=== PATIENT | male | born 1960 | race Caucasian/White ===

== ENCOUNTER 2019-07-08 17:16 | Observation (INO) ==
[2019-07-08] MEDS ORDERED: ASPIRIN PO ONE (17:27)
[2019-07-08 17:40] LABS: BASO# 0.04 X1000 (0.0-0.2); BASO% 0.2 % (0.0-0.8); EOS# 0.09 X1000 (0.0-0.7); EOS% 0.5 % (0.0-10.0); HEMATOCRIT 50.2 % (42.0-52.0); HEMOGLOBIN 16.8 g/dL (14.0-18.0); IMM GRAN# 0.05 X1000 (0.0-0.04); IMM GRAN% 0.3 % (0.0-0.5); LYMPH# 1.33 X1000 (1.2-3.4); LYMPH% 7.3 % (20.5-51.1); MCH 34.2 PG (27-31); MCHC 33.5 g/dL (33-37); MCV 102.2 FL (81-99); MONO# 1.94 X1000 (0.11-0.59); MONO% 10.7 % (1.7-9.3); MPV 9.9 FL (7.4-10.4); NEUT# 14.67 X1000 (1.4-6.5); PLT 386 X1000 (130-400); RBC 4.91 XMIL (4.7-6.1); RDW 13.8 % (11.5-14.5); WBC 18.12 X1000 (4.8-10.8)
[2019-07-08 17:45] LABS: INR 1.02; PROTIME 13.6 Seconds (11.0-16.0)
[2019-07-08 17:46] LABS: PTT 30.9 Seconds (22.3-41.8)
[2019-07-08 17:58] LABS: AGAP 15; ALB/GLOB RATIO 1.4; ALBUMIN 4.4 g/dL (3.5-5.0); ALKALINE PHOSPHATASE 69 U/L (32-122); BUN 10 mg/dL (8-22); CALCIUM 9.5 mg/dL (8.8-10.2); CHLORIDE 99 mmol/L (98-107); CK PROFILE 38 U/L (24-204); COSMO 279; CREATININE 0.9 mg/dL (0.7-1.2); ESTIMATED GFR > 60; GLUCOSE 101 mg/dL (70-104); GOT 11 U/L (10-34); GPT 8 U/L (10-44); POTASSIUM 4.8 mmol/L (3.5-5.1); SODIUM 140 mmol/L (136-145); TCO2 26 mmol/L (25-35); TOTAL PROTEIN 7.5 g/dL (6.3-8.3)
--- NOTE | 2019-07-08 18:07 | EKG Report ---
Test Performed on : 07/08/2019 5:28:11 PM Test Reason : sob Blood Pressure : / mmHG Vent. Rate : 128 BPM Atrial Rate : 128 BPM P-R Int : 138 ms QRS Dur : 074 ms QT Int : 302 ms P-R-T Axes : 089 079 072 degrees QTc Int : 440 ms Sinus tachycardia. with premature atrial complexes. Pulmonary disease pattern Septal infarct , age undetermined Abnormal ECG No previous ECGs available Unconfirmed Result
[2019-07-08] MEDS ORDERED: SOLU-MEDROL IV ONE (18:36)
[2019-07-08] MEDS ORDERED: LASIX IV ONE (18:36)
[2019-07-08] MEDS ORDERED: DUONEB (A & A) INH ONE (18:36)
[2019-07-08] MEDS ORDERED: ROCEPHIN 1 GM in NS 50 ML IV ONE (18:37)
--- NOTE | 2019-07-08 18:47 | Diag Imaging Result Doc PS360 ---
CHEST-2 VIEWS - 07/08/2019 INDICATION: sob COMPARISON: None FINDINGS: There is severe COPD. There are ill-defined infiltrates in both lower lobes. Heart size is normal. No pneumothorax or pleural effusion. IMPRESSION: Severe COPD. Severe bilateral lower lobe pneumonia. Electronically signed by Bean Taylor 07/08/2019 6:45 PM
--- NOTE | 2019-07-08 19:11 | PROVIDER DOCUMENTATION ---
HPI-General Adult - General Chief Complaint: SEPSIS ALERT - P Stated Complaint: DR STARKS REFERRED Time Seen by Provider: 07/08/19 17:34 Source: patient Allergies/Adverse Reactions: Patient Allergies Allergy/AdvReac Type Severity Reaction Status Date / Time No Known Allergies Allergy Verified 07/08/19 18:57 Home Medications: Home Medication List Medication Instructions Recorded Confirmed Last Taken Type Albuterol Sulfate [Proair 90 mcg INHALATION Q4H PRN 07/08/19 07/08/19 Unknown History Respiclick] Budesonide/Formoterol Inhaler 1 puff INHALATION DAILY 07/08/19 07/08/19 Unknown History [Symbicort 160/4.5 Microgm Inhaler] Fluticasone/Umeclidin/Vilanter 1 inh PO DAILY 07/08/19 07/08/19 Unknown History [Trelegy Ellipta 100-62.5-25] Roflumilast [Daliresp] 1 tab PO DAILY 07/08/19 07/08/19 Unknown History Tiotropium Br/Olodaterol HCl 2.5 mcg INHALATION DAILY 07/08/19 07/08/19 Unknown History [Stiolto Respimat Inhal [place]] - History of Present Illness -Gen Adult Nature of Presenting Problems: Patient with a h/o COPD, tobacco abuse reports sob which started yesterday but getting worse. he was at the PCP,s office today and desaturated to the 80,s. Denies chest pain, calf swelling. has been using his home inhalers without symptom resolution. he states he had rib fractures few weeks ago and has not been taking much of pain med as he was no longer hurting but thinks the fracture may have precipitated his symptoms Location of Pain/Injury: reports: none, other (sob) Pain Radiation: reports: no radiation Quality of Pain: reports: none Onset/Duration: reports: other (yesterday) Context/Activities at Onset: reports: none Modifying Factors: improves with: nothing Associated Symptoms: reports: shortness of breath Review of Systems - Adult - REVIEW OF SYSTEMS - ADULT Constitutional: reports: no symptoms reported Eyes: reports: no symptoms reported Ears, Nose, Mouth & Throat: reports: no symptoms reported Cardiovascular: reports: no symptoms reported Respiratory: reports: see HPI Gastrointestinal: reports: no symptoms reported Genitourinary: reports: no symptoms reported Musculoskeletal: reports: no symptoms reported Integumentary: reports: no symptoms reported Neurological: reports: no symptoms reported Psychiatric: reports: no symptoms reported Endocrine: reports: no symptoms reported Hematologic/Lymphatic: reports: no symptoms reported Allergic/Immunologic: reports: no symptoms reported Past History - Adult - PAST MEDICAL HISTORY-ADULT Review of Records: reports: Nursing Assessment Review, Medications Reviewed, Social history reviewed & non-contributory. Cardiovascular: reports: HTN Respiratory: reports: COPD Gastrointestinal: reports: GERD, other (constipation) Genitourinary: reports: erectile dysfunction Neurological: reports: denies history Psychiatric: reports: denies history - FAMILY HISTORY Family History: reviewed, not pertinent - SOCIAL HISTORY Smoking: cigarettes Substance Use: none/never Alcohol Use Frequency: occasionally Physical Exam-General - PHYSICAL EXAM-ADULT Initial Vital Signs Reviewed: Yes - CONSTITUTIONAL General Appearance: alert (and thin), mild distress - EYES Eyes: PERRL/EOMI - HEAD, EARS, NOSE, MOUTH & THROAT HENMT: normocephalic/atraumatic - NECK Neck: non-tender, full range of motion, supple - RESPIRATORY Respiratory: chest non-tender, other (decreased air entry) - CARDIOVASCULAR Cardiovascular: regular rate, rhythm - GASTROINTESTINAL (ABDOMEN) Abdominal Exam: non tender, soft - MUSCULOSKELETAL Back Exam: normal inspection, no CVA tenderness Extremity: normal range of motion - SKIN Integumentary: normal color - NEUROLOGIC Neurologic: grossly normal - PSYCHIATRIC Psych/Mental Status: oriented x 3 Progress - PLAN OF CARE/RESULTS Progress/Plan/Lab Results: Vital Signs - 8 hr 07/08/19 17:20 Temperature 98.3 F Pulse Rate 92 H Respiratory Rate 20 Blood Pressure 126/73 O2 Sat by Pulse Oximetry 94 L Laboratory Results - last 24 hr 07/08/19 07/08/19 07/08/19 17:29 17:29 17:29 WBC 18.12 H RBC 4.91 Hgb 16.8 Hct 50.2 MCV 102.2 H MCH 34.2 H MCHC 33.5 RDW Std Deviation 13.8 Plt Count 386 MPV 9.9 Immature Gran % (Auto) 0.3 Neut % (Auto) 81.0 H Lymph % (Auto) 7.3 L [place] % (Auto) 10.7 H Eos % (Auto) 0.5 Baso % (Auto) 0.2 Immature Gran # (Auto) 0.05 H Neut # (Auto) 14.67 H Lymph # (Auto) 1.33 Pitt # (Auto) 1.94 H Eos # (Auto) 0.09 Baso # (Auto) 0.04 PT INR PTT (Actin FS) Sodium 140 Potassium 4.8 Chloride 99 Carbon Dioxide 26 Anion Gap 15 BUN 10 Creatinine 0.9 Estimated GFR/1.73 m2 > 60 BUN/Creatinine Ratio 11 Glucose 101 Calculated Osmolality 279 Calcium 9.5 Total Bilirubin 0.70 AST 11 ALT 8 L Alkaline Phosphatase 69 Creatine Kinase 38 Troponin T Qaz-H-Oyawrxlazpu Pept 615 H Total Protein 7.5 Albumin 4.4 Globulin 3.1 Albumin/Globulin Ratio 1.4 07/08/19 07/08/19 17:29 17:29 WBC RBC Hgb Hct MCV MCH MCHC RDW Std Deviation Plt Count MPV Immature Gran % (Auto) Neut % (Auto) Lymph % (Auto) Pitt % (Auto) Eos % (Auto) Baso % (Auto) Immature Gran # (Auto) Neut # (Auto) Lymph # (Auto) Pitt # (Auto) Eos # (Auto) Baso # (Auto) PT 13.6 INR 1.02 PTT (Actin FS) 30.9 Sodium Potassium Chloride Carbon Dioxide Anion Gap BUN Creatinine Estimated GFR/1.73 m2 BUN/Creatinine Ratio Glucose Calculated Osmolality Calcium Total Bilirubin AST ALT Alkaline Phosphatase Creatine Kinase Troponin T < 0.010 [id number]-Hqpokgcegzj Pept Total Protein Albumin Globulin Albumin/Globulin Ratio Orders Category Date Time Status Cardiac Monitoring DIRECTED Care 07/08/19 17:27 Active Notify Physician As Ordered Care 07/08/19 18:51 Active Oxygen Therapy- ED Nursing DIRECTED Care 07/08/19 17:27 Active Saline Loc NOW Care 07/08/19 17:27 Active CHEST-2 VIEWS [RAD] Stat Exams 07/08/19 17:27 Completed BLOOD CULTURE [BLDCUL] Stat Lab 07/08/19 18:28 Ordered CBC WITH ELECTRONIC DIFF [HEME] Stat Lab 07/08/19 17:29 Completed CK PROFILE [SP CHEM] Stat Lab 07/08/19 17:29 Completed COMPREHENSIVE METABOLIC PANEL [CHEM] Stat Lab 07/08/19 17:29 Completed LACTATE, PLASMA [CHEM] Lab 07/08/19 18:28 Received LACTATE, PLASMA [CHEM] Lab 07/08/19 22:00 Uncollected LACTATE, PLASMA [CHEM] Lab 07/09/19 01:00 Uncollected PRO B-NATRIURETIC PEPTIDE Stat Lab 07/08/19 17:29 Completed PROTIME WITH INR [COAG] Stat Lab 07/08/19 17:29 Completed PTT [COAG] Stat Lab 07/08/19 17:29 Completed TROPONIN T Stat Lab 07/08/19 17:29 Completed Albuterol 2.5MG/Ipratrop 0.5MG [Duoneb (A & A)] Med 07/08/19 18:36 Discontinued 3 ml INH NOW ONE Aspirin Med 07/08/19 17:27 Discontinued 325 mg PO NOW ONE CefTRIAXONE [Rocephin] 1 gm Med 07/08/19 18:37 Active 0.9% Sodium Chloride Inj [Ns] 50 ml IV NOW Furosemide [Lasix] Med 07/08/19 18:36 Discontinued 40 mg IV NOW ONE Methylprednisolone Sod Succ [Solu-Medrol] Med 07/08/19 18:36 Discontinued 125 mg IV NOW ONE Aerosol Treatments Routine Oth 07/08/19 18:36 Active Aerosol Treatments Stat Oth 07/08/19 18:36 Active CP/SOB/Palp >45 yrs of Age Stat Oth 07/08/19 17:27 Ordered EKG [EKG] Stat Ther 07/08/19 17:27 Draft Result Diagrams: 07/08/19 17:29 07/08/19 17:29 - REASSESSMENT Reassessment #1 Status: improving (just completed duoneb, reports improvement of symptoms. lung exam shows improved air entry. no obvious wheezing) - XRAY 1 XRAY Study: Chest ( CHEST-2 VIEWS - 07/08/2019 INDICATION: sob COMPARISON: None FINDINGS: There is severe COPD. There are ill-defined infiltrates in both lower lobes. Heart size is normal. No pneumothorax or pleural effusion. IMPRESSION: Severe COPD. Severe bilateral lower lobe pneumonia. Electronically signed by Bean Taylor 07/08/2019 6:45 PM) - CONSULTS/PCP/HOSPITALIST Notification #1 *Consult/PCP/Hospitalist*: Dr Lockett Time Discussed: 08:40 Consult Disposition: Admit Departure - Departure Date of Disposition Decision: 07/08/19 Time of Disposition Decision: 20:55 DIAGNOSIS: COPD exacerbation Pneumonia Qualifiers: Pneumonia type: due to unspecified organism Laterality: bilateral Lung location: lower lobe of lung Qualified Code(s): J18.1 - Lobar pneumonia, unspecified organism Sepsis Qualifiers: Sepsis type: sepsis due to unspecified organism Sepsis acute organ dysfunction status: unspecified Qualified Code(s): A41.9 - Sepsis, unspecified organism Disposition: ADMITTED INPATIENT 09 Certified Medical Emergency: Emergent Condition: Fair Referrals and Follow-Ups: Andrez Starks MD [Primary Care Provider] - - Critical Care Note This patient required my direct & personal management of CC.: No Attestation - Physician/ CHUNG Attestation Patient care was provided by Advanced Practice Provider:: No The physician spent face to face time with patient:: Yes Advanced Practice Provider documentation review:: Supervising physician onsite and consulted in the evaluation and care of this patient. The physician did have a face to face encounter with the patient.
[2019-07-08] MEDS ORDERED: ZITHROMAX 500 MG/NS 500 MG/250 ML IVPB IV ONE (19:49)
[2019-07-08] MEDS ORDERED: NS 1,500 ML IV ONE (19:58)
[2019-07-08] MEDS ORDERED: NICODERM PATCH TD PRN (21:27)
[2019-07-08] MEDS ORDERED: NS 1,000 ML IV SCH (21:30)
--- NOTE | 2019-07-08 22:20 | HISTORY AND PHYSICAL ---
CHIEF COMPLAINT: Shortness of breath for about two days. HISTORY OF PRESENT ILLNESS: Mr. Aneesh Thomson is a 58-year-old male who has a history of COPD, tobacco use history, hypertension, gastroesophageal reflux disease. He presents to the hospital because of shortness of breath which has been ongoing for about two days. He also describes a cough productive of yellowish, greenish sputum. The patient has an extensive cigarette smoking history for about 40 years. He denies any hemoptysis, but admits to having wheezing. The patient was seen and evaluated in the ER. X-ray of the chest showed evidence of severe COPD as well as severe bilateral lower lobe pneumonia. The patient has now been admitted to the floor for further management. PAST MEDICAL HISTORY: COPD, hypertension, gastroesophageal reflux disease, history of erectile dysfunction, history of constipation. SOCIAL HISTORY: Patient smokes cigarettes and has been smoking for about 40 years. He drinks alcohol. Denies drug use. ALLERGIES: No known medication allergies. PAST SURGICAL HISTORY: Unremarkable. FAMILY HISTORY: Positive for cancer. MEDICATIONS: Include the following: Albuterol (ProAir) 90 mcg inhalation q.4 hours p.r.n., Symbicort 160/4.5 one puff daily, Trelegy Ellipta 100/62.5/25 one inhalation daily, Daliresp 1 tablet daily, Stiolto Respimat inhalation 2.5 mcg inhalation daily. REVIEW OF SYSTEMS: Constitutional: No fever. Central nervous system: No headaches. Eyes: Blurred vision. ENT: No sinus problems or hearing loss. Cardiovascular: Denies chest pain. Gastrointestinal: He has constipation. Genitourinary: No dysuria. Musculoskeletal: He has joint pain. Dermatologic: No skin lesions. Hematologic: No bleeding problems. Endocrinologic: No thyroid disease or diabetes. Allergic/immunologic: He has some nasal discharge. Psychiatric: No anxiety or depression. PHYSICAL EXAMINATION: VITAL SIGNS: Temperature 98.3 degrees, pulse 92, respirations 20, blood pressure 126/73, oxygen saturation is 94%. HEENT: Patient is atraumatic, normocephalic. He is anicteric. Extraocular movements intact. He has whitish discoloration on his tongue. NECK: No lymphadenopathy or thyromegaly. CARDIOVASCULAR: S1, S2. RESPIRATORY SYSTEM: Evidence of good air entry bilaterally. ABDOMEN: Soft, nontender. No masses felt. EXTREMITIES: No evidence of edema. CENTRAL NERVOUS SYSTEM: No obvious focal deficits noted. LABORATORY AND DIAGNOSTIC DATA: WBC 18.12, hematocrit is 50.2, with a platelet count of 386,000, MCV is 102.2. INR is 1.02. Sodium is 140, potassium 4.8, chloride is 99, bicarbonate 26, BUN is 10, creatinine 0.9. ProBNP is 615. X-ray of chest shows evidence of severe COPD, as well as severe bilateral lower lobe pneumonia. EKG shows evidence of sinus tachycardia with premature atrial complexes. ASSESSMENT AND PLAN: 1. Chronic obstructive pulmonary disease exacerbation. Maintain patient on nebulized bronchodilators, steroids, as well as antibiotics. Maintain patient on oxygen supplementation. Patient advised on smoking cessation. 2. Community-acquired pneumonia. Obtain sputum as well as blood cultures. Maintain patient on empiric antibiotics. 3. Sepsis. Maintain patient on intravenous fluids. Continue antibiotics. Follow up on cultures. 4. Elevated proBNP level. Obtain 2D echo of the heart. 5. Macrocytosis. Check B12 level, folate level, GTT level, as well as a TSH level. 6. Leukocytosis. Probably related to infective process. Will follow up on patient's white count. 7. Hypertension. Blood pressure controlled without medications. 8. Gastroesophageal reflux disease. Maintain patient on proton pump inhibitor. 9. Deep vein thrombosis prophylaxis. Lovenox. cc: Roger Carrington MD
[2019-07-08 22:22] LABS: URINE SOURCE CLEAN CATCH
[2019-07-08 22:38] LABS: BILIRUBIN URINE NEGATIVE (NEGATIVE); BLOOD URINE NEGATIVE (NEGATIVE); COLOR YELLOW; GLUCOSE URINE NEGATIVE (NEGATIVE); KETONE URINE TRACE mg/dL (NEGATIVE); LEUKOCYTES URINE TRACE (NEGATIVE); NITRITE URINE NEGATIVE (NEGATIVE); PROTEIN URINE NEGATIVE (NEGATIVE); SP GRAVITY URINE 1.011; TURBIDITY URINE CLEAR (CLEAR); UR EPITHELIAL CELLS <10 /HPF (<10); URINE BACTERIA NEGATIVE /HPF; URINE RBC <10 /HPF (<10); URINE WBC <10 /HPF (<10); UROBILINOGEN URINE NORMAL (NORMAL)
[2019-07-08] MEDS: LEVAQUIN 750 MG/D5W 750 MG/150 ML IVPB IV SCH (22:59)
[2019-07-08] MEDS: DUONEB (A & A) INH SCH (23:04)
[2019-07-09] MEDS: SOLU-MEDROL IV SCH ×3 (03:17→20:15)
[2019-07-09] MEDS: DUONEB (A & A) INH SCH ×6 (03:46→23:26)
[2019-07-09] MEDS: PRILOSEC PO SCH (06:22)
[2019-07-09 06:29] LABS: BASO# 0.01 X1000 (0.0-0.2); BASO% 0.1 % (0.0-0.8); HEMATOCRIT 42.8 % (42.0-52.0); HEMOGLOBIN 14.3 g/dL (14.0-18.0); IMM GRAN# 0.02 X1000 (0.0-0.04); IMM GRAN% 0.2 % (0.0-0.5); LYMPH# 0.33 X1000 (1.2-3.4); MCH 34.2 PG (27-31); MCHC 33.4 g/dL (33-37); MCV 102.4 FL (81-99); MONO# 0.17 X1000 (0.11-0.59); MONO% 1.6 % (1.7-9.3); MPV 10.3 FL (7.4-10.4); NEUT# 10.29 X1000 (1.4-6.5); NEUT% 95.1 % (42.2-75.2); PLT 335 X1000 (130-400); RBC 4.18 XMIL (4.7-6.1); RDW 13.4 % (11.5-14.5); WBC 10.82 X1000 (4.8-10.8)
[2019-07-09 06:44] LABS: AGAP 14; ALB/GLOB RATIO 1.3; ALBUMIN 3.5 g/dL (3.5-5.0); ALKALINE PHOSPHATASE 67 U/L (32-122); BUN 10 mg/dL (8-22); CALCIUM 8.1 mg/dL (8.8-10.2); CHLORIDE 100 mmol/L (98-107); COSMO 277; CREATININE 0.6 mg/dL (0.7-1.2); ESTIMATED GFR > 60; GLUCOSE 166 mg/dL (70-104); GOT 9 U/L (10-34); GPT 6 U/L (10-44); POTASSIUM 4.2 mmol/L (3.5-5.1); SODIUM 137 mmol/L (136-145); TCO2 23 mmol/L (25-35); TOTAL BILIRUBIN 0.41 mg/dL (0.20-1.00); TOTAL PROTEIN 6.2 g/dL (6.3-8.3)
[2019-07-09 08:18] LABS: BANDS 7 % (0-1); LYMPHS 2 % (21-51); MONO 2 % (1-9); SEGS 89 % (42-75)
--- NOTE | 2019-07-09 08:35 | Diag Imaging Result Doc PS360 ---
EXAM: CHEST-1 VIEW HISTORY: copd TECHNIQUE: Single view COMPARISON: 07/09/2019 FINDINGS: The lungs are hyperexpanded. The pulmonary vessels are small. There is crowding of vessels inferiorly. No cardiomegaly. No consolidation. No pleural effusions identified. IMPRESSION: Severe emphysema. Electronically signed by Carmelo Larsen 07/09/2019 8:32 AM
--- NOTE | 2019-07-09 08:37 | Diag Imaging Result Doc PS360 ---
EXAM: RIBS BILATERAL W/O PA HISTORY: rib fracture TECHNIQUE: Chest and bilateral RIBS, five views COMPARISON: None. FINDINGS: The lungs are hyperexpanded. No contusion or pneumothorax. There are fractures to the lateral left eighth and ninth ribs. Minimal displacement. IMPRESSION: Left rib fractures. Electronically signed by Carmelo Larsen 07/09/2019 8:35 AM
[2019-07-09] MEDS: LOVENOX SUBQ SCH (08:57)
--- NOTE | 2019-07-09 16:12 | PROGRESS NOTE ---
DATE: 07/09/2019 SUBJECTIVE: Today, Mr. Thomson refers to be doing a little better. Denies any new complaints. According to him, his shortness of breath is slightly improving. OBJECTIVE: Vital Signs: Blood pressure is 112/75, pulse of 102, respirations 18, and temperature 98.2 degrees. General: Mr. Thomson is a 58-year-old male. He is in bed. He looks slightly undernourished with a BMI of 17.9. HEENT: Mucosa is pink and moist. Anicteric. Acyanotic. Neck: Supple. Chest: Barrel shape. Chest: Air entry is bilaterally reduced. I did not hear any rhonchi, crackles or wheezing. Cardiovascular: Regular rate and rhythm. Abdomen: Soft. Extremities: No pedal edema. COGNOS REPORT DEVELOPER: Patient is awake, alert, and oriented. LABORATORY DATA: WBC is down to 10.83, hemoglobin is 14.2, and platelet count of 335,000. Chemistry is also reviewed, and is unremarkable. ASSESSMENT: 1. Acute hypoxemic respiratory failure on presentation improved. 2. Severe COPD with exacerbation. 3. Pulmonary cachexia 4. Recent left rib fractures noted. 5. Mild lactic acidosis most likely due to increased work of breathing from the COPD exacerbation. PLAN: In general, I think Mr. Thomson is doing a lot better. We will continue with the nebulization therapy, steroids and antimicrobial. We will re-evaluate him in the morning and then see how he is doing. cc: Gerber Goldstein MD
--- NOTE | 2019-07-09 19:07 | ECHO REPORT ---
ORDER DATE: 07/08/2019 INDICATION: COPD, flu. M-MODE MEASUREMENTS: Left ventricle end diastole: 3.6. Left ventricle end systole: 2.7. Posterior wall: 1.0. Interventricular septum: 1.0. Left atrium: 2.3. Aortic diameter: 2.7. SUMMARY OF 2-DIMENSIONAL IMAGIN. Left ventricular function is normal. Ejection fraction is 56% to 60%. No wall motion abnormality. 2. The right ventricle appears to be normal. There are some premature atrial beats. 3. The mitral valve shows some nonspecific thickening. The cusps open normally. Color flow mapping is unremarkable. 4. Pulsed wave Doppler of mitral inflow shows normal E/A ratio. 5. Tissue Doppler of septal and lateral mitral annulus averages is suboptimal. 6. The tricuspid valve shows no significant regurgitation. Pulmonary pressure cannot be adequately calculated. 7. The pulmonic valve is also suboptimally visualized. His Doppler signal appears to be unremarkable. 8. The aortic valve has 3 cusps. There is thickening of the cusps without stenosis. 9. There is no pericardial effusion, no mass, and no thrombus. 10.The right-sided chambers appear to be unremarkable. SUMMARY: This study shows: 1. Normal left ventricular systolic function. 2. No significant valvular abnormality. 3. Diastolic function cannot be adequately estimated here. 4. No pulmonary hypertension. Clinical correlation recommended. cc: MD Roger Mart MD
[2019-07-09] MEDS: LEVAQUIN 750 MG/D5W 750 MG/150 ML IVPB IV SCH (20:44)
[2019-07-10] MEDS: DUONEB (A & A) INH SCH ×3 (03:31→11:40)
[2019-07-10] MEDS: SOLU-MEDROL IV SCH (03:41)
[2019-07-10 03:44] LABS: ALLEN TEST YES; BE 4.4 mmoll (-3.0-3.0); BLOOD TYPE ARTERIAL; HCO3-(ACT) 28.3 mmoll (20.0-26.0); METHB 0.9 % (0.0-1.5); O2(CT) 19.3 mL/dL (15.0-23.0); O2HB 96.6 % (95.0-99.0); PCO2(98.6) 43 mmHg (35-45); PO2(98.6) 110 mmHg (60-100); SAMPLE BLOOD; SAO2 99.4 % (95.0-100.0); THB 14.1 g/dL (11.5-17.4); pH(98.6) 7.44 (7.35-7.45)
[2019-07-10 03:45] LABS: MODALITY CANNULA
[2019-07-10] MEDS: PRILOSEC PO SCH (06:31)
[2019-07-10 07:08] LABS: HEMOGLOBIN 13.2 g/dL (14.0-18.0); MCH 33.8 PG (27-31); MCV 102.6 FL (81-99); MPV 10.2 FL (7.4-10.4); RBC 3.9 XMIL (4.7-6.1); RDW 13.3 % (11.5-14.5); WBC 13.54 X1000 (4.8-10.8)
[2019-07-10 07:19] LABS: AGAP 13; ALBUMIN 3.4 g/dL (3.5-5.0); BUN 9 mg/dL (8-22); CALCIUM 9.1 mg/dL (8.8-10.2); CHLORIDE 101 mmol/L (98-107); COSMO 276; CREATININE 0.6 mg/dL (0.7-1.2); ESTIMATED GFR > 60; GLUCOSE 129 mg/dL (70-104); MAGNESIUM 2.1 mg/dL (1.5-2.7); PHOSPHORUS 2.7 mg/dL (2.7-4.5); POTASSIUM 4.1 mmol/L (3.5-5.1); SODIUM 138 mmol/L (136-145); TCO2 24 mmol/L (25-35)
[2019-07-10] MEDS: LOVENOX SUBQ SCH (09:48)
[2019-07-10 11:48] VITALS: BP 108/75
[2019-07-10] MEDS ORDERED: FLU VACCINE IM ONE (11:57)
[2019-07-10] MEDS ORDERED: PNEUMOVAX 23 IM ONE (12:15)
--- NOTE | 2019-07-10 22:51 | DISCHARGE SUMMARY ---
ADMISSION DATE: 07/08/2019 DISCHARGE DATE: 07/10/2019 CONSULTATIONS: None during this admission. INVASIVE PROCEDURES: None during this admission. DIAGNOSTIC DATA: Imaging studies of significance: 1. A chest x-ray did reveal severe COPD with bilateral lower lobe pneumonia. 2. An echocardiogram did show an ejection fraction of 56% to 60%; left ventricle and right ventricle seem to be normal. There was no significant valvular abnormality. The pulmonary pressure could not be adequately measured. ADMISSION DIAGNOSES: 1. Chronic obstructive pulmonary disease exacerbation. 2. Community-acquired pneumonia. 3. Sepsis. 4. Elevated proBNP. DISCHARGE DIAGNOSES: 1. Acute hypoxemic respiratory failure, improved. 2. Severe chronic obstructive pulmonary disease with exacerbation. 3. Pulmonary cachexia. 4. Mild lactic acidosis secondary to increased work of breathing. 5. Recent left rib fractures noted. DISCHARGE MEDICATIONS: 1. Trelegy Ellipta. 2. Roflumilast 500 mcg p.o. daily. 3. Levofloxacin 500 p.o. daily. 4. Prednisone 20 mg p.o. daily. PRESENTING COMPLAINT: Shortness of breath. HISTORY OF PRESENTING COMPLAINT: Mr. Thomson is a 58-year-old gentleman who is known to have severe COPD and follows up with Dr. Puri. He came to the emergency department because of increased shortness of breath and cough. Upon presentation, he was evaluated and was found to be hypoxemic. X-rays revealed severe COPD with bilateral pneumonia. He was admitted for further medical care. HOSPITAL COURSE: Mr. Thomson was admitted to the medical floor. He was started on antimicrobial therapy, oxygen, bronchodilation and steroids. Over the short course he improved so remarkably with standard of care. There was no need to consult Pulmonary Medicine. Mr. Thomson normally follows up with Dr. Puri. This morning he feels a whole lot better. He is not using oxygen anymore. His white cell count has come down to 13.54 from 18 on admission. His chemistry is also unremarkable, and his physical exam is completely stable. His current blood pressure is 108/75, pulse of 89, respirations 20, temperature is 97.9 degrees. The patient was saturating 95% on room air. We think Mr. Thomson is now fairly stable to be discharged. He is going to go on oral steroid for 5 days and complete antibiotic therapy for 7 days. He has been advised to follow up with Dr. Puri. We also discussed extensively the need for Mr. Thomson to stop smoking. All the discharge instructions were discussed with him and he voiced understanding. Time spent for discharge was 35 minutes. cc: MD Jose Ledezma MD Mamoun I. Najjar, MD
== END 2019-07-10 13:39 | disposition home or self-care (01) | DRG 193 ==
LOC: ED 17:16 → INTOOBSV 23:18 → 4N 23:18 → SUATTDRO 23:18
PROVIDERS: ATTEND Internal Medicine